=== PATIENT | female | born 1960 | race African-American/Black ===

== ENCOUNTER 2017-11-04 10:34 | Outpatient (CLI) | payer OTHER ==
--- NOTE | 2017-11-04 11:43 | Mammography Report ---
BILATERAL MAMMOGRAM: FINDINGS: There are scattered fibroglandular densities (approximately 25%-50% glandular). No mass, distortion, suspicious calcification, or skin change is seen. CAD was utilized. IMPRESSION: Negative mammogram. There is no mammographic evidence of malignancy. RECOMMENDATION: Follow-up per ACS guidelines. BI-RADS CATEGORY: 1 = Negative ACR BI-RADS MAMMOGRAPHIC CODES: 0 = Needs additional imaging evaluation; 1 = Negative; 2 = Benign; 3 = Probably benign; 4 = Suspicious; 5 = Malignant; 6 = Known biopsy-proven malignancy COMMENT: 1. Dense breast tissue, i.e., adenosis, fibrocystic changes, etc., may obscure an underlying neoplasm. 2. Approximately 10% of cancers are not detected with mammography. 3. A negative mammography report should not delay biopsy if a clinically suspicious mass is present. COMMENT: Patient follow-up letters are generated in [employer].
--- NOTE | 2017-11-04 14:24 | Ultrasound Report ---
Pelvic ultrasound: Postmenopausal bleeding. Transabdominal and endovaginal imaging demonstrates an anteverted uterus measuring 2.3 x 4.0 x 6.6 cm. The myometrium is homogeneous. The endometrial contour is smooth, homogeneous, and has a diameter of 2 mm. Right ovary measures 16 mm in size and is echogenically unremarkable. The left ovary is not identified by either approach. It is of note that the patient was unable to void for optimum endovaginal imaging. Impression: 1. Unremarkable uterus and right ovary. 2. Nonvisualized left ovary.
== END 2017-11-04 10:35 | disposition home or self-care (01) ==
LOC: SPVWC 10:34
PROVIDERS: ATTEND Family Medicine
DX: Z12.31 Encounter for screening mammogram for malignant neoplasm of breast (principal); N95.0 Postmenopausal bleeding
CPT/HCPCS: 76830; 76856; 77067